=== PATIENT | female | born 1970 | race African-American/Black ===

== ENCOUNTER → 2017-02-28 | Outpatient (CLI) | payer BC ==
--- NOTE | 2017-02-28 12:16 | RAD ---
Exam: PA and lateral chest radiograph History: Productive cough, flulike symptoms. Comparison: 02/10/2010. Findings: Cardiac silhouette appears within normal limits for size. No pneumothorax or pleural effusion is identified. There is evidence of nodular infiltrate involving the right lower lung zone on the frontal view. This is thought to correspond to the right middle lobe on the lateral view. Impression: A nodular right middle lobe infiltrate, suggesting pneumonia.
== END | disposition home or self-care (01) ==
LOC: DXRADRC 11:26
PROVIDERS: ATTEND Nurse Practitioner Family
DX: J11.1 Influenza due to unidentified influenza virus with other respiratory manifestations (principal); R05 Cough
CPT/HCPCS: 71020

== ENCOUNTER → 2017-03-03 | Outpatient (CLI) | payer BC ==
--- NOTE | 2017-03-03 13:11 | RAD ---
Chest, 2 views, 03/03/2017: History: Follow-up pneumonia Comparison is made to a study from 02/28/2017. There is moderate patchy right basilar infiltrate which has worsened. This appears to involve the right middle and lower lobes. The left chest remains clear. No pleural fluid is evident. The heart is now at the upper limits of normal in size. IMPRESSION: Worsening right basilar infiltrate suggesting pneumonia.
== END | disposition home or self-care (01) ==
LOC: DXRADRC 12:29
PROVIDERS: ATTEND Nurse Practitioner Family
DX: J18.9 Pneumonia, unspecified organism (principal)
CPT/HCPCS: 71020

== ENCOUNTER → 2017-03-31 | Outpatient (CLI) | payer BC ==
--- NOTE | 2017-03-31 09:31 | RAD ---
Indication cough. Pneumonia. Follow-up. PA and lateral views of the chest were obtained and are compared to an examination 03/03/2017. The heart and pulmonary vessels are normal. Infiltrate, compatible with pneumonia, seen previously in the right middle and lower lobes has cleared. A new finding is not seen. There is no pleural fluid or pneumothorax. IMPRESSION: No acute finding. Previously identified pneumonia, in the right lung, has cleared
== END | disposition home or self-care (01) ==
LOC: DXRADRC 09:11
PROVIDERS: ATTEND Nurse Practitioner Family
DX: R05 Cough (principal); J18.9 Pneumonia, unspecified organism
CPT/HCPCS: 71020

== ENCOUNTER → 2021-01-15 | Outpatient (CLI) | payer OTHER ==
--- NOTE | 2021-01-19 08:55 | RAD ---
DATE: 01/15/2021 8:31 AM EXAM: DIGITAL SCREEN BILAT W/CAD HISTORY: Screening COMPARISON: 12/21/2016 Bilateral full field craniocaudal and mediolateral oblique images were obtained using digital technique. This study was interpreted with the benefit of Computerized Aided Detection (CAD). A right X CCL view was also obtained. FINDINGS: Breast Density: HETERO The breast parenchyma Is heterogeneously dense, which could reduce sensitivity of mammography. Breast parenchyma level C No suspicious masses, microcalcifications or architectural distortion is present to suggest malignancy in either breast. The visualized axillae are unremarkable. IMPRESSION: No mammographic evidence of malignancy. BI-RADS CATEGORY: 1 NEGATIVE RECOMMENDED FOLLOW-UP: 12M 12 MONTH FOLLOW-UP Annual screening mammography is recommended, unless clinically indicated sooner based on symptoms or change in physical exam. PQRS compliance statement: Patient information was entered into a reminder system with a target due date for the next mammogram. Mammography is a sensitive method for finding small breast cancers, but it does not detect them all and is not a substitute for careful clinical examination. A negative mammogram does not negate a clinically suspicious finding and should not result in delay in biopsying a clinically suspicious abnormality. "Our facility is accredited by the [employer] Mammography Program."
== END ==
LOC: MAMMO 08:19
PROVIDERS: ATTEND Family Medicine
DX: Z12.31 Encounter for screening mammogram for malignant neoplasm of breast (principal)
CPT/HCPCS: 77067